=== PATIENT | female | born 1975 | race Caucasian/White ===

== ENCOUNTER 2021-07-04 08:00 | Outpatient (CLI) | payer SELFPAY ==
--- NOTE | 2021-07-04 10:23 | XRAY Report ---
PROCEDURE: Chest 2 View X-Ray INDICATIONS: PRODUCTIVE COUGH TECHNIQUE: 2 view(s) of the chest. COMPARISON: None. FINDINGS: SUPPORT DEVICES: None. LUNG/PLEURA: Opacification of the left mid/lower lung zones, concerning for pleural effusion with ate lectasis. The right lung is well aerated. No pneumothorax. MEDIASTINUM: The cardiac silhouette is partially obscured. No superior mediastinal widening. BONES/SOFT TISSUES: No acute abnormality. IMPRESSION: 1.Moderate left pleural effusion. A superimposed infectious process cannot be excluded. Reviewed by: Byron Houston MD on 07/04/2021 10:21 AM PDT Approved by: Byron Houston MD on 07/04/2021 10:21 AM PDT Station ID: [id number]
== END 2021-07-04 23:59 | disposition home or self-care (01) ==
LOC: DI.N 08:00
PROVIDERS: ATTEND Family Medicine
DX: R05.9 Cough, unspecified (principal); J02.9 Acute pharyngitis, unspecified; Z20.822 Contact with and (suspected) exposure to COVID-19
CPT/HCPCS: 87070

== ENCOUNTER 2023-09-15 08:00 | Outpatient (CLI) | payer OTHER | END 2023-09-15 23:59 | disposition home or self-care (01) | LOC: LAB 08:00 | PROVIDERS: ATTEND Nurse Practitioner | DX: R10.9 Unspecified abdominal pain (principal) | CPT/HCPCS: 87077; 87086 ==